=== PATIENT | female | born 1980 | race Caucasian/White ===

== ENCOUNTER 2022-03-20 05:48 | Emergency (ER) | payer BC ==
[~2022-03-20] VITALS: Ht 162.6 cm; Wt 75.0 kg
[~2022-03-20 05:48] MED LIST: ORTHO TRI-CYCLE1 TA1 PO
[2022-03-20 05:54] VITALS: TEMP 97.6
[2022-03-20] MEDS ORDERED: NORCO 325 MG-51 TAB PO (06:38)
[2022-03-20 06:51] VITALS: BP 147/97; PULSE 81
== END 2022-03-20 06:51 | disposition home or self-care (01) ==
LOC: COL.ER 05:48
DX: M25.551 Pain in right hip (principal)

== ENCOUNTER → 2023-09-10 | Outpatient (CLI) | payer BC ==
[~2023-09-10] MED LIST changes: +NORCO 325 MG-51 TAB PO; +Triamcinolone 40 MG/ML 1 ML VIAL IJ SCH
== END ==
LOC: COL.RAD 07:28
DX: M46.1 Sacroiliitis, not elsewhere classified (principal)
CPT/HCPCS: G0260; J0665; J3301